=== PATIENT | male | born 2000 | race Caucasian/White ===

== ENCOUNTER 2023-04-22 07:55 | Emergency (ER) | payer BC | END 2023-04-22 10:14 | disposition home or self-care (01) | LOC: JD.ED 07:55 | DX: S46.911A Strain of unspecified muscle, fascia and tendon at shoulder and upper arm level, right arm, initial encounter (principal); S16.1XXA Strain of muscle, fascia and tendon at neck level, initial encounter; F17.210 Nicotine dependence, cigarettes, uncomplicated; X50.0XXA Overexertion from strenuous movement or load, initial encounter | CPT/HCPCS: 73030-26-RT; 73030-RT; 99283 ==

== ENCOUNTER 2023-11-14 13:44 | Emergency (ER) | payer BC ==
[2023-11-14] MEDS ORDERED: Ketorolac 10 MG Tab PO ONE (14:49)
[2023-11-14] MEDS ORDERED: predniSONE 10 MG Tab PO ONE (14:49)
== END 2023-11-14 15:12 | disposition home or self-care (01) ==
LOC: JD.ED 13:44
DX: M72.2 Plantar fascial fibromatosis (principal); Z79.899 Other long term (current) drug therapy; F17.210 Nicotine dependence, cigarettes, uncomplicated
CPT/HCPCS: 99283